=== PATIENT | male | born 1950 | race Caucasian/White ===

== ENCOUNTER 2021-12-18 19:53 | Emergency (ER) | payer OTHER, MEDICAID ==
[~2021-12-18] VITALS: Ht 165.1 cm; Wt 72.6 kg
[2021-12-18 20:17] VITALS: BP_SYST 153
[2021-12-18 20:58] LABS: HEMATOCRIT 24.1 % (36-54); HEMOGLOBIN 7.7 g/dL (14.0-18.0); MEAN CORPUSCULAR HEMOGLOBIN 26 pg (27-31); MEAN CORPUSCULAR HGB CONC 32 % (32-36); MEAN CORPUSCULAR VOLUME 80 fL (79.0-98.0); PLATELET COUNT (AUTO) 323 K/uL (130-430); RED BLOOD CELL COUNT(AUTO) 3.01 MIL/uL (4.2-6.2); RED CELL DISTRIBUTION WIDTH 17.8 % (9.0-15.0); WHITE BLOOD COUNT (AUTO) 11.1 K/uL (4.8-10.8)
[2021-12-18 21:13] LABS: CALCIUM 7.3 mg/dL (8.4-11.0); CREATININE 1.08 mg/dL (0.55-1.30)
[2021-12-18 21:18] LABS: ALBUMIN 1.3 g/dL (3.4-4.8)
[2021-12-18 21:40] LABS: INR 1.2 (0.80-1.20); PROTHROMBIN TIME 11.7 SECS (9.5-12.5); TOTAL BILIRUBIN 0.2 mg/dL (0.0-1.0)
[2021-12-18 22:14] LABS: BAND % (MANUAL) 5 % (0-6); BASOPHILS % (MANUAL) 0 % (0-2); EOSINOPHILS % (MANUAL) 5 % (0-7); LYMPHOCYTES % (MANUAL) 15 % (20-46); MONOCYTES % (MANUAL) 8 % (0-11)
[2021-12-19 01:04] VITALS: BP_SYST 161
== END 2021-12-19 01:04 | disposition home or self-care (01) ==
LOC: SED 19:53
DX: D64.9 Anemia, unspecified (principal)
CPT/HCPCS: 36415; 71045; 80053; 82150; 83605; 83690; 85007; 85027; 85610-TC; 85730-TC; 86886; 86900; 86901; 99285